=== PATIENT | male | born 1980 ===

== ENCOUNTER 2023-05-07 07:53 | Outpatient (CLI) | payer OTHER | END 2023-05-07 08:02 | disposition home or self-care (01) | LOC: RAD 07:53 | PROVIDERS: ATTEND Physical Medicine & Rehabilitation | DX: M54.2 Cervicalgia (principal); Z88.0 Allergy status to penicillin ==

== ENCOUNTER 2024-07-13 13:37 | Outpatient (CLI) | payer OTHER | END 2024-07-13 13:42 | disposition home or self-care (01) | LOC: RAD 13:37 | PROVIDERS: ATTEND Physical Medicine & Rehabilitation | DX: S66.911A Strain of unspecified muscle, fascia and tendon at wrist and hand level, right hand, initial encounter (principal) ==